=== PATIENT | female | born 1950 | race Caucasian/White ===

== ENCOUNTER 2017-03-31 10:22 | Emergency (ER) | payer OTHER, MEDICARE ==
[2017-03-31 10:28] VITALS: BMI 23.3
--- NOTE | 2017-03-31 10:34 | PDOC ---
History of Present Illness - General History Source: Patient Exam Limitations: No Limitations - History of Present Illness Initial Comments: 03/31/17 11:16 The patient is a 67 year old female, with a significant past medical history of high cholesterol who presents to the emergency department with fever, nausea, vomiting, and abdominal pain. The patient reports having intermittent abdominal pain localize in her RUQ for about 3 days. She reports having two episode of vomiting over the course of 2 days. She reports her abdominal pain radiates to her back area. She also arrives with c/os of chills and intermittent fevers. The patient reports going to an Urgent Care and having a negative flu test. She denies recent headache or dizziness. She denies recent dysuria, frequency, urgency or hematuria. She denies recent chest pain or shortness of breath. Allergies: NKA Past surgical history: None reported. Social history: Nonsmoker. Denies EtOH use and recreational drug use. 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) COPD: No Disorders: Yes (H/O KIDNEY STONES) Kidney Stones: Yes Psychiatric Problems: Yes (DEPRESSION HX) - Suicide/Smoking/Psychosocial Hx Smoking History: Never smoked Hx Alcohol Use: Yes (SOCIAL) Drug/Substance Use Hx: No Substance Use Type: Alcohol <Leticia Sharif - Last Filed: 03/31/17 15:46> - Past Medical History Allergies/Adverse Reactions: Allergies Allergy/AdvReac Type Severity Reaction Status Date / Time No Known Allergies Allergy Verified 03/31/17 10:27 Home Medications: Ambulatory Orders Atorvastatin Ca [Lipitor] 10 mg PO DAILY 06/08/13 Lorazepam [Ativan] 0.5 mg PO DAILY 06/08/13 Tiagabine HCl [Gabitril] 0.5 tablet PO DAILY 06/08/13 Cyclobenzaprine HCl 5 mg PO HS PRN #30 tablet 07/01/15 Cholecalciferol (Vitamin D3) [Vitamin D3] 1 tab PO DAILY 07/25/15 Multivitamin with Iron [Daily Ender with Iron] 1 each PO DAILY 07/25/15 Review of Systems - Review of Systems Able to Perform ROS?: Yes Comments:: 03/31/17 10:56 GENERAL/CONSTITUTIONAL: +fever and chills. No weakness. HEAD, EYES, EARS, NOSE AND THROAT: No change in vision. No ear pain or discharge. No sore throat. CARDIOVASCULAR: No chest pain or shortness of breath. RESPIRATORY: No cough, wheezing, or hemoptysis. GASTROINTESTINAL:+abd pain, nausea, vomiting No diarrhea or constipation. GENITOURINARY: No dysuria, frequency, or change in urination. MUSCULOSKELETAL: No joint or muscle swelling or pain. No neck or back pain. SKIN: No rash NEUROLOGIC: No headache, vertigo, loss of consciousness, or change in strength/ sensation. ENDOCRINE: No increased thirst. No abnormal weight change. HEMATOLOGIC/LYMPHATIC: No anemia, easy bleeding, or history of blood clots. ALLERGIC/IMMUNOLOGIC: No hives or skin allergy. <Lev Cramer - Last Filed: 03/31/17 12:31> *Physical Exam - Vital Signs Last Vital Signs Temp Pulse Resp BP Pulse Ox 98.9 F 96 H 20 146/63 99 03/31/17 10:24 03/31/17 10:24 03/31/17 10:24 03/31/17 10:24 03/31/17 10:24 - Physical Exam Comments: 03/31/17 11:18 GENERAL: Awake, alert, and fully oriented, in no acute distress HEAD: No signs of trauma EYES: PERRLA, EOMI, sclera anicteric, conjunctiva clear ENT: Auricles normal inspection, hearing grossly normal, nares patent, oropharynx clear without exudates. Moist mucosa NECK: Normal ROM, supple, no lymphadenopathy, JVD, or masses LUNGS: Breath sounds equal, clear to auscultation bilaterally. No wheezes, and no crackles HEART: Regular rate and rhythm, normal S1 and S2, no murmurs, rubs or gallops ABDOMEN: Soft, tenderness to light palpation in her RUQ with voluntary guarding , normoactive bowel sounds. No rebound. No masses EXTREMITIES: Normal range of motion, no edema. No clubbing or cyanosis. No cords, erythema, or tenderness NEUROLOGICAL: Cranial nerves II through XII grossly intact. Normal speech, normal gait SKIN: Warm, Dry, normal turgor, no rashes or lesions noted. <Lev Cramer - Last Filed: 03/31/17 12:31> - Vital Signs Last Vital Signs Temp Pulse Resp BP Pulse Ox 98.9 F 96 H 20 146/63 99 03/31/17 10:24 03/31/17 10:24 03/31/17 10:24 03/31/17 10:24 03/31/17 10:24 <Leticia Sharif - Last Filed: 03/31/17 15:46> ED Treatment Course - LABORATORY CBC & Chemistry Diagram: 03/31/17 11:22 03/31/17 11:22 <Lev Cramer - Last Filed: 03/31/17 12:31> - LABORATORY CBC & Chemistry Diagram: 03/31/17 11:22 03/31/17 11:22 <Leticia Sharif - Last Filed: 03/31/17 15:46> Medical Decision Making - Medical Decision Making 03/31/17 12:32 EKG reveals a left bundle branch block new from 2013, patient has no chest complaints. Will give patient a copy of her EKG and instruct her to follow up with PCP upon discharge <Lev Cramer - Last Filed: 03/31/17 12:31> - Medical Decision Making 03/31/17 12:24 Pt presents to the Ed complaining of RUQ pain and tenderness along with nausea, vomiting and fever for the last 4 days. No surgical history. Initial concern for cholecystitis--but labs and US show no evidence of billiary disease. Pain and nausea are improved after treatment, but still has RUQ tenderness. I will check CT to rule out diverticulitis, retrocecal appendix or other occult causes of her pain. <Leticia Sharif - Last Filed: 03/31/17 15:46> *DC/Admit/Observation/Transfer - Attestations Scribe Attestion: 03/31/17 10:56 Documentation prepared by Lev Cramer, acting as medical record clerk for Leticia Sharif MD. <OmarLev quick - Last Filed: 03/31/17 12:31> - Discharge Dispostion Admit: No <Leticia Sharif - Last Filed: 03/31/17 15:46> Diagnosis at time of Disposition: Abdominal pain Qualifiers: Abdominal location: right upper quadrant Qualified Code(s): R10.11 - Right upper quadrant pain - Discharge Dispostion Disposition: HOME Condition at time of disposition: Good - Referrals Referrals: Akin Whitten [Primary Care Provider] - - Patient Instructions Printed Discharge Instructions: DI for Abdominal Pain-Adult Additional Instructions: return to the ED for severe pain, severe nausea and vomiting, bloody vomit or stool, persistent fever after two days. Make sure your see your doctor this week.
[2017-03-31] MEDS ORDERED: SODIUM CHLORIDE 0.9% 1000 ML INFUS.BAG IV ONE ×2 (11:20→14:39)
[2017-03-31] MEDS ORDERED: ACETAMINOPHEN 1000 MG/100 ML VIAL (NON FORMULARY) IVPB ONE (11:20)
[2017-03-31] MEDS ORDERED: ONDANSETRON 4 MG/2 ML VIAL IVPUSH ONE (11:20)
[2017-03-31] MEDS ORDERED: ACETAMINOPHEN INJECTION 100 ML IVPB ONE (11:30)
[2017-03-31] MEDS ORDERED: ONDANSETRON 4 MG/2 ML VIAL ONE (11:30)
[2017-03-31 11:48] LABS: BASO % 0.2 % (0-2.0); HEMATOCRIT 38.5 % (32.4-45.2); HEMOGLOBIN 12.6 GM/dL (10.7-15.3); LYMPH % 9.1 % (8-40); MCH 31.8 pg (25.7-33.7); MCHC 32.8 g/dl (32.0-36.0); MEAN CELL VOLUME 96.9 fl (80-96); MEAN PLT VOLUME 7.7 fl (7.5-11.1); MONO % 5.9 % (3.8-10.2); NEUT % 84.8 % (42.8-82.8); PLATELET COUNT 174 K/MM3 (134-434); RBC 3.97 M/mm3 (3.60-5.2); RDW 13.3 % (11.6-15.6); WHITE BLOOD COUNT 11.7 K/mm3 (4.0-10.0)
[2017-03-31 11:55] LABS: URINE APPEARANCE CLEAR; URINE BILIRUBIN NEGATIVE (NEGATIVE); URINE BLOOD 2+ (NEGATIVE); URINE COLOR DKYELLOW; URINE GLUCOSE (UA) NEGATIVE (NEGATIVE); URINE KETONE TRACE (NEGATIVE); URINE LEUK ESTERASE NEGATIVE (NEGATIVE); URINE NITRITE NEGATIVE (NEGATIVE)
[2017-03-31 12:06] LABS: URINE PROTEIN 1+ (NEGATIVE)
[2017-03-31 12:07] LABS: ALBUMIN 3.4 g/dl (3.4-5.0); ALK PHOS 65 U/L (45-117); ANION GAP 10 (8-16); BILIRUBIN,TOTAL 0.5 mg/dL (0.2-1.0); BLOOD UREA NITROGEN 8 mg/dL (7-18); CALCIUM 8.2 mg/dL (8.5-10.1); CHLORIDE 103 mmol/L (98-107); CO2 24 mmol/L (21-32); CREATININE 0.7 mg/dL (0.55-1.02); GLUCOSE,RANDOM 114 mg/dL (74-106); LIPASE 112 U/L (73-393); POTASSIUM 3.5 mmol/L (3.5-5.1); SGOT/AST 20 U/L (15-37); SGPT/ALT 25 U/L (12-78); SODIUM 137 mmol/L (136-145); TOT PROT 6.9 g/dl (6.4-8.2)
[2017-03-31 12:08] LABS: INR 1.05 (0.82-1.09); PROTHROMBIN TIME (PATIENT) 11.9 SEC (9.98-11.88); URINE HYALINE CAST 2 /lpf; URINE MUCUS FEW
[2017-03-31 12:11] LABS: ACTIVATED PTT 29.5 SECONDS (26.9-34.4)
--- NOTE | 2017-03-31 14:50 | EKG ---
Test Reason : Blood Pressure : / mmHG Vent. Rate : 094 BPM Atrial Rate : 094 BPM P-R Int : 140 ms QRS Dur : 134 ms QT Int : 368 ms P-R-T Axes : 065 -42 104 degrees QTc Int : 460 ms NORMAL SINUS RHYTHM POSSIBLE LEFT ATRIAL ENLARGEMENT LEFT AXIS DEVIATION LEFT BUNDLE BRANCH BLOCK ABNORMAL ECG WHEN COMPARED WITH ECG OF 08-JUN-2013 07:51, VENT. RATE HAS INCREASED BY 46 BPM LEFT BUNDLE BRANCH BLOCK IS NOW PRESENT CLINICAL CORRELATION IS RECOMMENDED Confirmed by OSEI TOM MD ([id number]) on 03/31/2017 2:50:05 PM Referred By: Confirmed By:OSEI TOM MD
[2017-03-31] MEDS ORDERED: FAMOTIDINE IV 20 MG/12 ML VIAL IVPB ONE (15:43)
[2017-03-31] MEDS ORDERED: FAMOTIDINE 20 MG/50 ML IVPB 20 MG/50 ML MG IVPB ONE (15:51)
[2017-03-31 16:39] VITALS: BP 134/78; PULSE 71; TEMP 99
== END 2017-03-31 15:50 | disposition home or self-care (01) ==
LOC: JER 10:22
PROC: 3E033GC Introduction of Other Therapeutic Substance into Peripheral Vein, Percutaneous Approach (ICD-10-PCS; principal; 2017-03-31)
PROC: 3E033GC Introduction of Other Therapeutic Substance into Peripheral Vein, Percutaneous Approach (ICD-10-PCS; 2017-03-31)
PROC: 3E033NZ Introduction of Analgesics, Hypnotics, Sedatives into Peripheral Vein, Percutaneous Approach (ICD-10-PCS; 2017-03-31)
DX: R10.11 Right upper quadrant pain (principal); F32.9 Major depressive disorder, single episode, unspecified; Z87.442 Personal history of urinary calculi; Z85.828 Personal history of other malignant neoplasm of skin
CPT/HCPCS: 36415; 74177-TC; 76705-TC; 80053; 81003; 81015; 83605; 83690; 85025; 85610; 85730; 86850; 86900; 86901; 87086; 93005; 93010; 96365; 96375; 99283-25; Q9967